=== PATIENT | male | born 2000 | race Caucasian/White ===

== ENCOUNTER 2023-08-19 01:04 | Emergency (ER) | payer MEDICAID ==
[~2023-08-19] VITALS: Ht 172.7 cm; Wt 79.4 kg
[2023-08-19 01:16] VITALS: BP 145/82; TEMP 97.9; O2SAT 100
[2023-08-19] MEDS ORDERED: TDAP [DIPH/PERTUSSIS/TET] 0.5 ML VIAL IM ONE ×2 (01:27→01:30)
== END 2023-08-19 02:06 | disposition home or self-care (01) ==
LOC: ER 01:06
DX: S20.419A Abrasion of unspecified back wall of thorax, initial encounter (principal); W54.0XXA Bitten by dog, initial encounter; Y93.89 Activity, other specified; Y92.89 Other specified places as the place of occurrence of the external cause; Y99.8 Other external cause status
CPT/HCPCS: 90715

== ENCOUNTER 2024-04-02 21:35 | Emergency (ER) | payer MEDICAID ==
[~2024-04-02] VITALS: Ht 172.7 cm; Wt 72.6 kg
[2024-04-02 23:46] VITALS: BP 121/78; TEMP 98.1; O2SAT 98
[2024-04-03] MEDS ORDERED: IBUP-1955 PO (00:32)
[2024-04-03] MEDS ORDERED: ACET-2605 PO (00:32)
[2024-04-03] MEDS ORDERED: CYCL5TAB PO (00:32)
== END 2024-04-03 00:41 | disposition home or self-care (01) ==
LOC: ER 21:38
DX: S20.212A Contusion of left front wall of thorax, initial encounter (principal); M54.6 Pain in thoracic spine; V43.52XA Car driver injured in collision with other type car in traffic accident, initial encounter; Y93.89 Activity, other specified; Y92.488 Other paved roadways as the place of occurrence of the external cause; Y99.8 Other external cause status
CPT/HCPCS: 71100-TC